=== PATIENT | male | born 1965 | race Caucasian/White ===

== ENCOUNTER 2016-12-24 11:03 | Observation (INO) | payer OTHER ==
[2016-12-24] MEDS ORDERED: MIDAZOLAM 2 MG/2 ML VIAL IVP ONE (11:11)
[2016-12-24] MEDS ORDERED: NS 1,000 ML IV ONE (11:11)
--- NOTE | 2016-12-24 11:32 | CPEKG ---
Heart Rate: 77 RR Interval: 779 P-R Interval: 132 QRSD Interval: 98 QT Interval: 400 QTC Interval: 453 P [place]: 34 QRS [place]: 74 T Wave [place]: -10 EKG Severity - ABNORMAL ECG - EKG Impression: SINUS RHYTHM EKG Impression: INFERIOR INFARCT, AGE INDETERMINATE Electronically Signed By: Robert Jansen 24-Dec-2016 16:51:13
[2016-12-24 11:40] LABS: % IMMATURE GRANULYOCYTES 0.2 % (0.0-1.1); ABSOLUTE IMMATURE GRANULOCYTES 0.01 10^3/uL (0.00-0.10); ADD DIFF? NO; ADD MORPH? NO; ADD SCAN? NO; ATYPICAL LYMPHOCYTE FLAG 0 (0-99); FRAGMENT RBC FLAG 0 (0-99); HEMATOCRIT 47.9 % (40.0-51.0); LEFT SHIFT FLG 0 (0-99); LIPEMIA HEMOLYSIS FLAG 90 (0-99); MEAN CELL HEMOGLOBIN 30.6 pg (27.9-34.1); MEAN CELL HEMOGLOBIN CONCENTR. 35.5 g/dL (32.4-36.7); MEAN CELL VOLUME 86.2 fL (81.5-99.8); MEAN PLATELET VOLUME 9.3 fL (8.7-11.7); PLATELET CLUMPS FLAG 0 (0-99); PLATELET COUNT 185 10^3/uL (150-400); RED BLOOD CELL COUNT 5.56 10^6/uL (4.40-6.38)
[2016-12-24 11:53] LABS: INR 1.03 (0.83-1.16); PROTIME(PATIENT) 13.4 SEC (12.0-15.0)
[2016-12-24 11:54] LABS: APTT 28.7 SEC (23.0-38.0)
[2016-12-24 11:57] LABS: ANION GAP 13 mEq/L (8-16); CALCIUM 9.3 mg/dL (8.5-10.4); CARBON DIOXIDE 22 mEq/l (22-31); CHLORIDE 105 mEq/L (97-110); CREATININE 1.5 mg/dL (0.7-1.3); GLOMERULAR FILTRATION RATE 50; GLUCOSE 89 mg/dL (70-100); SODIUM 140 mEq/L (134-144)
--- NOTE | 2016-12-24 11:58 | PDANEPAE ---
ANE History of Present Illness h/o WPW ANE Past Medical History - Cardiovascular History Hx Hypertension: No Hx Arrhythmias: Yes Hx Chest Pain: No Hx Coronary Artery / Peripheral Vascular Disease: No Hx CHF / Valvular Disease: No Hx Palpitations: No Cardiovascular History Comment: h/o WPW s/p surgical ablation, now with recurrent SVT - Pulmonary History Hx COPD: No Hx Asthma/Reactive Airway Disease: No Hx Recent Upper Respiratory Infection: No Hx Oxygen in Use at Home: No Hx Sleep Apnea: No - Endocrine History Hx Diabetes: No - Neurological & Psychiatric Hx Hx Neurological and Psychiatric Disorders: Yes Neurological / Psychiatric History Comment: bipolar d/o ANE Review of Systems Review of systems is: negative - Exercise capacity Exercise capacity: >=4 METS ANE Patient History - Allergies Allergies/Adverse Reactions: butalbital [From Fiorinal] Allergy (Unknown, Verified 06/13/12 09:24) Other-Enter Comments caffeine [From Fiorinal] Allergy (Verified 07/13/10 14:20) Other-Enter Comments oxycodone HCl [From Percocet] Allergy (Verified 07/13/10 14:20) Other-Enter Comments rizatriptan benzoate [From Maxalt] Allergy (Verified 07/13/10 14:20) Other-Enter Comments tramadol [Tramadol] Allergy (Verified 07/13/10 14:20) Other-Enter Comments - Home Medications Home medications: home medication list seen and reviewed Home Medications: Nebivolol HCl [Bystolic] 2.5 mg PO DAILY 03/03/16 [Last Taken 12/21/16] clonazePAM [Klonopin (*)] 0.5 mg PO DAILY PRN 12/24/16 [Last Taken Unknown] lamoTRIgine [LamICTAL 100 MG (*)] 200 mg PO HS 12/24/16 [Last Taken 12/23/16] - Smoking Hx Smoking Status: Never smoked ANE Labs/Vital Signs - Labs Result Diagrams: 12/24/16 11:30 12/24/16 11:30 - Vital Signs Height: 185 cm Weight: 86.2 kg ANE Physical Exam - Airway Neck exam: FROM Mallampati Score: Class 1 Mouth exam: normal dental/mouth exam - Pulmonary Pulmonary: no respiratory distress - Cardiovascular Cardiovascular: regular rate and rhythym - ASA Status ASA Status: II ANE Anesthesia Plan Anesthesia Plan: general endotracheal anesthesia
[2016-12-24] MEDS ORDERED: fentaNYL 100 MCG/2 ML INJ ONE (12:03)
[2016-12-24] MEDS ORDERED: DEXAMETHASONE 4 MG/ML VIAL ONE (12:05)
[2016-12-24] MEDS ORDERED: ONDANSETRON 4 MG/2 ML VIAL ONE (12:05)
[2016-12-24] MEDS ORDERED: SUGAMMADEX SODIUM 200 MG/2 ML VIAL IVP ONE (12:05)
[2016-12-24] MEDS ORDERED: MIDAZOLAM 2 MG/2 ML VIAL ONE (12:06)
[2016-12-24] MEDS ORDERED: ISOPROTERENOL HCL/D5W 0.2 MG/50 ML BAG IV ONE (12:06)
[2016-12-24] MEDS ORDERED: BUPIVACAINE 0.5% 30 ML SDV ONE (12:06)
[2016-12-24] MEDS ORDERED: HEPARIN 10,000 UNIT/10 ML MDV ONE ×2 (12:06→14:09)
[2016-12-24] MEDS ORDERED: LIDOCAINE 1% 300 MG/30 ML SDV ONE (12:06)
[2016-12-24] MEDS ORDERED: PROPOFOL 200 MG/20 ML VIAL ONE (12:50)
[2016-12-24] MEDS ORDERED: ROCURONIUM 50 MG/5 ML VIAL ONE (15:32)
[2016-12-24] MEDS ORDERED: ATROPINE SULFATE 1 MG/10 ML SYR ONE (16:45)
--- NOTE | 2016-12-24 17:05 | POSTANESTH ---
Post Anesthetic Evaluation Cardiovascular Status: Normal, Stable Respiratory Status: Normal, Stable Level of Consciousness/Mental Status: Can Participate in Eval Pain Control: Adequate, Prn Tx Ordered Nausea/Vomiting Control: Adequate, Prn Tx Ordered Complications Possibly Related to Anesthesia: None Noted
[2016-12-24] MEDS ORDERED: ACETAMINOPHEN 325 MG TAB PO PRN (17:14)
[2016-12-24] MEDS ORDERED: ONDANSETRON 4 MG/2 ML VIAL IVP PRN (17:14)
[2016-12-24] MEDS ORDERED: clonazePAM 0.5 MG TAB PO PRN (17:16)
--- NOTE | 2016-12-24 17:17 | EPPROC ---
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: INDICATION: Surgical ablation for R posteroseptal accessory pathway in 1980s Catheter ablation for CT isthmus dependent AFL and macro R AT near IVC at our institution 9 y ago Symptom free for 9 y, now presenting with AT with 1:1 conduction to ventricles 250-260 bpm PROCEDURES PERFORMED: 88918-03 EP evaluation with RA/RV/LA pace/record, with arrhythmia induction 53344-10 EP evaluation with RA/RV pace record, insert/reposition catheter, with arrhythmia induction 01698 SVT ablation Second arrhythmia 80108 3D mapping Fluoroscopy Catheters & Anesthesia: The patient arrived in the Electrophysiology Laboratory in the fasting state. The right clavicular region, right groin, and left groin area were prepped and draped in the usual sterile manner. Anesthesiologist administered general anesthesia. Appropriate non-invasive blood pressure, pulse oximetry and end- tidal CO2 monitoring was established. All catheters were placed percutaneously using the modified Seldinger technique , and advanced into position under fluoroscopic guidance. One #7 Tongan deflectable octapolar electrode catheter was advanced to the His-bundle position via the left femoral vein. One #7 Tongan deflectable catheter with 10 pairs of electrodes was placed via the left femoral vein into the coronary sinus. One # 7 Tongan Halo catheter was inserted through the right femoral vein and was placed at the tricuspid annulus. Heparin was administered to keep ACT > 250 seconds. Programmed stimulation was performed from the right atrium, coronary sinus ( left atrium) and right ventricle. Parahisian pacing demonstrated VA block. On arrival to the Electrophysiology Laboratory the patient was in sinus rhythm. Differential CS and Halo pacing confirmed bidirectional block across the CT isthmus. Septal to lateral conduction time 180 ms. SCL 800 ms, AH 60 ms, HV 55 ms Antegrade AV quita function WBB 340 ms, no slow AV quita pathway Retrograde VA block 2 AT were induced while burst pacing the RA during isoproterenol infusion 2 mcg/ min. AT#1 CL 230-250 ms. Entrainment mapping confirmed that this was not atrial flutter. AT#2 CL 240-270 ms. There was 1:1 conduction over the AV node with intermittent RBBB/LAFB and RBBB/LPFB aberrancy. Activation mapping showed lateral TA was early and this was not consistent with atrial flutter. Due to 1:1 conduction over AV node and hypotension, we were not able to map during AT. At lower doses of isoproterenol we could not induce AT. At higher doses of isoproterenol we could not induce AT. An Agilis sheath, Pentaray catheter and STSF 3.5 mm Carto catheter were used. A high resolution (4000+ point map) of the RA, proximal CS , proximal SVC was performed. Again this confirmed conduction block across CT isthmus. Double potentials and fragmented potentials were seen along the mid posterior and posterolateral RA. Ablation was performed along all areas showing low voltage fragmented and double potentials (avoiding normal voltage areas near skyla terminalis showing double potentials). Pacing was performed at all ablation sites to rule out phrenic nerve stimulation. Ablation was mainly directed at posterior and posteroseptal RV targeting fragmented/double potentials and also channels of normal voltage in between areas of scar/low voltage. Post ablation, programmed stimulation was performed with and without isoproterenol. No arrhythmias were inducible. The catheters were removed. Long sheath was changed to short 10Fr sheath. Protamine was administered. The patient was transferred to the cardiovascular holding area in stable condition. Vascular access sheaths were removed in the holding area. There were no apparent complications. CONCLUSIONS: 1. 2 separate macroreentrant right atrial tachycardias. Ablation performed in the mid posterior and posterolateral right atrium. No arrhythmias inducible post ablation. 2. Prior ablation across the cavotricuspid isthmus. Persistent bidirectional conduction block across CT isthmus. 3. Prior surgical ablation of right posteroseptal accessory pathway. No evidence of antegrade or retrograde conduction over accessory pathway. 4. No atrial arrhythmias inducible post ablation. 5. No apparent complications. Patient Problems: Problems Problem Status Onset Atrial tachycardia Acute
[2016-12-24] MEDS ORDERED: KETOROLAC 30 MG/1 ML SDV ONE (17:38)
[2016-12-24] MEDS ORDERED: KETOROLAC 15 MG/1 ML SDV IVP ONE (17:45)
--- NOTE | 2016-12-24 18:09 | CPEKG ---
Heart Rate: 97 RR Interval: 619 P-R Interval: 140 QRSD Interval: 96 QT Interval: 368 QTC Interval: 468 P [place]: 41 QRS [place]: 65 T Wave [place]: -10 EKG Severity - ABNORMAL ECG - EKG Impression: SINUS RHYTHM EKG Impression: LEFT ATRIAL ABNORMALITY Electronically Signed By: Raheel Abbott 24-Dec-2016 21:05:55
[2016-12-24] MEDS ORDERED: IOPAMIDOL (ISOVUE 370) 100 ML BTL IV ONE (18:48)
[2016-12-24] MEDS ORDERED: LORazepam 2 MG/ML INJ ONE ×2 (18:59→19:10)
[2016-12-24] MEDS ORDERED: LORazepam 2 MG/ML INJ IVP ONE ×2 (19:00→19:30)
[2016-12-24 19:02] LABS: ANION GAP 11 mEq/L (8-16); CALCIUM 8.1 mg/dL (8.5-10.4); CARBON DIOXIDE 19 mEq/l (22-31); CHLORIDE 107 mEq/L (97-110); CREATININE 1.6 mg/dL (0.7-1.3); GLOMERULAR FILTRATION RATE 46; GLUCOSE 118 mg/dL (70-100); MAGNESIUM 1.7 mg/dL (1.6-2.3); POTASSIUM 4.7 mEq/L (3.5-5.2); SODIUM 137 mEq/L (134-144)
[2016-12-24] MEDS ORDERED: levETIRAcetam 500 MG in NS 100 ML IV ONE (19:11)
[2016-12-24] MEDS ORDERED: lamoTRIgine 100 MG TAB PO SCH (21:00)
--- NOTE | 2016-12-24 22:02 | PDGENHP ---
History and Physical History and Physical: CRITICAL CARE NOTE HISTORY: I responded to a statin team call and Stroke alert this evening for this patient who has had cardiac ablation treatment bike transcatheter approach earlier today. As I arrived the patient was awake lying in bed with staff members and his at the bedside. The patient had just been transferred over from the post procedure recovery area. The nurses were transferring him from [facility] to bed. The patient suddenly had odd look on his face according to the nurse and would not speak to her although it seemed that he might have been following other commands. Following this the patient was awake and this is when I arrived. Vital signs are normal at this time the patient is breathing and denying any chest discomfort or headache or shortness of breath. He has sinus rhythm on cytotechnologist supervisor. As we were with the patient he had another episode where suddenly he would not talk, his eyes fixed straight ahead, eyelids twitching and perioral muscles contracted in odd posture. This lasted for perhaps 45 seconds and resolved. He did not follow commands for me during this time. There was no other convulsion. Following this episode as well as following the 1st episode the patient was not confused, somnolent, or sedated. However he told me that he felt somewhat foggy. Again he denies any headache, chest discomfort, shortness of breath, nausea, other pains. He stated he felt fine at his in bilateral groin access sites. Cardiac and pulmonary exam were normal, pulses strong and regular, and vital signs again remained normal. An I-STAT test was done showing normal electrolytes renal function and sugar. I could find no focal neurologic abnormalities. There was concern that these episodes were seizure and that this could potentially be caused by stroke. Therefore we begin to move the patient down to the Radiology Department for stat imaging and contacted the on-call neurologist at [facility] by telemedicine. On the way to the imaging department the patient had another seizure-like episode and then during the time of our CT scanning he had several more episodes. These were each brief but as the episodes occurred each 1 seem to have more diffuse muscle activity that was tonic primarily in his hands and then arms. Again each of these was not followed by any confusion, somnolence or change in mentation. As we completed the imaging studies we re-examined him and had somewhat inconsistent examination of strength in the lower limbs. He was then examined by the telemedicine neurologist via robot. The patient did have further seizure -like activity during this examination although notably the patient was having some tonic activity of the arms and upon instruction of the neurologist he was able to stop this and move his arms normally. It should be mentions that between the time of his 1st episode and the time of this examination the patient had been given a total 4 mg of IV Ativan and 1 g of IV Keppra. CT of the head noncontrast did not show any acute abnormalities. CT angiograms did not show any significant vascular abnormalities. He was admitted earlier today and underwent an ablation therapy for ongoing ventricular ectopy by Dr. Robert Jansen. The patient has a history of heart disease with Achss-Wkeksncvm-Fdlam status post surgery and previous ablation therapy for a fib. Notably the patient has no history of seizure disorder stroke or other neurologic disorder. He has bipolar disorder and takes Lamictal for that and last took his nightly dose last night. Dr. Jansen was with the patient during his neurologic exam and the CT scan room ROS: A comprehensive 10 system review revealed no other significant findings PAST MEDICAL HISTORY: Gycby-Qebhohjvx-Krbin syndrome with surgery for that at age 21 Subsequent atrial fibrillation with an ablation therapy for that Bicuspid aortic valve Ongoing ventricular ectopy FAMILY MEDICAL HISTORY: No neurologic illness or vascular illness SOCIAL HISTORY: lives with his No street drugs or alcohol Exercises LABORATORY DATA: As above I stat was normal during this evaluation RADIOLOGY STUDIES: CT scans as listed above with results their ASSESSMENT: 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 However will watch him very closely in ICU and have an EEG done in the morning. Formal bedside neurology consult tomorrow. Will check laboratory dated to ensure electrolytes stating good range Continue his Lamictal I have reviewed the patient's case in detail with Dr. Robert Jansen and with the consulting telemedicine radiologist Greater than 60 minutes critical care time at the bedside
[2016-12-25 06:22] LABS: % IMMATURE GRANULYOCYTES 0.3 % (0.0-1.1); ABSOLUTE IMMATURE GRANULOCYTES 0.02 10^3/uL (0.00-0.10); ADD DIFF? NO; ADD MORPH? NO; ADD SCAN? NO; ATYPICAL LYMPHOCYTE FLAG 0 (0-99); FRAGMENT RBC FLAG 0 (0-99); HEMOGLOBIN 13.5 g/dL (13.7-17.5); LEFT SHIFT FLG 0 (0-99); LIPEMIA HEMOLYSIS FLAG 90 (0-99); MEAN CELL HEMOGLOBIN 31.2 pg (27.9-34.1); MEAN CELL HEMOGLOBIN CONCENTR. 35.5 g/dL (32.4-36.7); MEAN CELL VOLUME 87.8 fL (81.5-99.8); MEAN PLATELET VOLUME 9.3 fL (8.7-11.7); PLATELET CLUMPS FLAG 10 (0-99); PLATELET COUNT 161 10^3/uL (150-400); RED BLOOD CELL COUNT 4.33 10^6/uL (4.40-6.38)
[2016-12-25 06:32] LABS: ANION GAP 9 mEq/L (8-16); CALCIUM 8.1 mg/dL (8.5-10.4); CARBON DIOXIDE 22 mEq/l (22-31); CHLORIDE 108 mEq/L (97-110); CREATININE 1.3 mg/dL (0.7-1.3); GLOMERULAR FILTRATION RATE 59; GLUCOSE 98 mg/dL (70-100); MAGNESIUM 1.8 mg/dL (1.6-2.3); POTASSIUM 3.8 mEq/L (3.5-5.2); SODIUM 139 mEq/L (134-144)
[2016-12-25 06:38] LABS: INR 1.1 (0.83-1.16); PROTIME(PATIENT) 14.1 SEC (12.0-15.0)
[2016-12-25 06:44] LABS: CREATINE KINASE-MB FRACTION 2.36 ng/mL (0-3.19); TROPONIN I 0.557 ng/mL (0-0.034)
--- NOTE | 2016-12-25 08:44 | CPEKG ---
Heart Rate: 82 RR Interval: 732 P-R Interval: 136 QRSD Interval: 102 QT Interval: 396 QTC Interval: 463 P [place]: 42 QRS [place]: 45 T Wave [place]: -12 EKG Severity - ABNORMAL ECG - EKG Impression: SINUS RHYTHM EKG Impression: INFERIOR INFARCT, AGE INDETERMINATE Electronically Signed By: Robert Jansen 25-Dec-2016 11:49:23
[2016-12-25] MEDS ORDERED: ASPIRIN 81 MG CHEWABLE TAB PO SCH (09:00)
[2016-12-25] MEDS ORDERED: NEBIVOLOL HCL 5 MG TAB PO SCH (09:00)
[2016-12-25] MEDS ORDERED: NON-FORMULARY NEW DRUG (Nebivolol Hcl [Bystolic] 2.5 MG) PO SCH (09:00)
--- NOTE | 2016-12-25 09:06 | ECHO ---
[id number] + + [address] : : [place] [address] : : [phone] + + Adult Echocardiographic Report + ------+ :Name: IRVIN DURAN RStudy Date: 12/25/2016 07:47 AM : : Hospital Admission Number: [id number] n: 256: :: 1965 Gender: Male Height: 72 in : :Age: 50 yrs Race: WH Weight: 190 lb : :Reason For Study: Eval LV Fx : : BSA: 2.1 meters 2 : :History: Post Ablation : + ------+ MMode/2D Measurements \T\ Calculations IVSd: 0.79 cm LVIDd: 5.1 cm FS: 39.0 % Ao root diam: 3.6 cm LVPWd: 1.1 cm LVIDs: 3.1 cm EDV(Teich): 125.5 ml ACS: 1.8 cm ESV(Teich): 38.9 ml EF(Teich): 69.0 % Normal Measurement Values: + + :LVIDd (3.5-5.7cm) IVSd (0.6-1.1cm) LVPWd (0.6-1.1cm) Aortic Root (2.0-3.7cm)Left Atrium (1.5-4.0cm): :LV Vol(d) (76-115ml) LV Vol(s) (29-48ml) Ejec Fraction (50-65%)PV Simeon (0.6- 1.2m/s) TV Simeon (0.4-1.0m/s) : :MV E Simeon (0.8-1.0m/s)MV A Simeon (0.3-1.0m/s)LVOT Simeon (0.7-1.2m/s) Asc Ao Simeon ( 0.9-1.8m/s) : + + Doppler Measurements \T\ Calculations MV E max simeon: Ao V2 max: AI max simeon: LV V1 max: 94.8 cm/sec 138.5 cm/sec 248.4 cm/sec 87.4 cm/sec MV A max simeon: Ao max PG: AI max P.7 mmHg LV V1 max P.5 cm/sec 7.7 mmHg AI dec slope: 3.1 mmHg MV E/A: 1.3 169.0 cm/sec2 AI P1/2t: 430.4 msec PA V2 max: TR max simeon: 95.0 cm/sec 222.6 cm/sec PA max PG: TR max P.6 mmHg 19.8 mmHg RAP systole: 5.0 mmHg RVSP(TR): 24.8 mmHg Left Ventricle The left ventricle is normal in size. There is normal left ventricular wall thickness. The left ventricular ejection fraction is normal. Ejection Fraction = 70%. The left ventricular wall motion is normal. Right Ventricle The right ventricle is normal in size and function. Atria The left atrial size is normal. Right atrial size is normal. Mitral Valve The mitral valve is normal in structure and function. There is no evidence of mitral valve prolapse. There is no mitral valve stenosis. There is no mitral regurgitation noted. Tricuspid Valve Normal tricuspid valve. No tricuspid regurgitation. Aortic Valve There is a known bicuspid aortic valve. There is no aortic stenosis. Mild aortic regurgitation. Pulmonic Valve The pulmonic valve is normal in structure and function. There is no pulmonic valvular regurgitation. Great Vessels The aortic root is normal size. Pericardium/Pleural There is no pericardial effusion. Conclusion A complete two-dimensional transthoracic echocardiogram was performed (2D, M-mode, Doppler and color flow Doppler). The left ventricular ejection fraction is normal. Ejection Fraction = 70%. The left ventricular wall motion is normal. The right ventricle is normal in size and function. The mitral valve is normal in structure and function. There is a known bicuspid aortic valve. Mild aortic regurgitation. There is no pericardial effusion. Final Reading Physician: Ananya Watkins signed on 12/25/2016 09:04 AM Ordering Physician: Robert Jansen Performed By: Duarte Robertson, CARRIECS
[2016-12-25 10:22] VITALS: TEMP 98.7
--- NOTE | 2016-12-25 11:59 | PDCARPN ---
Cardiology Progress Note Assessment/Plan: This is a late progress note for encounter 12/24/2016. Total time spent with the patient was 1 hour and 15 minutes. Patient had an ablation procedure for right atrial tachycardia yesterday . He was anticoagulated with an ACT level more than 250 seconds during the procedure. I had talked with him in the CBC prior to leaving the hospital and explained procedure at length to the patient. Approximately 6:45 p.m., I was called by the telemetry nurse, CVC nurse and ICU charge nurse regarding patient' s status. Please refer to Dr. You note for further details regarding the neurologic episodes that the patient had and which he witnessed. I met the patient in the CT scan room. He was appropriate and following commands. He did have 1 episode of tonic activity of the left upper extremity without any other lateralizing neurologic signs and without any prolonged confusion post event. Was able to talk to me during the event. I reviewed this CT scan and the CT angiogram of head and neck with Dr. Nadeem Marcial, these were normal. I was present while the patient had his remote neurologic examination with [place] neurologist. I subsequently talked to the neurologist by phone at length. There was no evidence of stroke. His presentation was atypical for seizures. We will request a consultation with Neurology for Saturday. We will also order a prolactin level to be drawn within 30 minutes of the last event. I met with the patient again on 12/25/2016 and discussed the results of the ablation. I also discussed his management options with Dr. Kleber Escobar who has placed driving restrictions on the patient which she has discussed with the patient. The patient is to follow up with Dr. Kleber Escobar as an outpatient and MRI and EEG will be done at that time. Objective: Vital Signs (8 Hrs) Temp Pulse Resp BP Pulse Ox 12/25/16 10:00 37.1 C 85 19 111/61 96 12/25/16 08:00 84 18 106/62 97 12/25/16 06:00 80 16 96/58 L 94 12/25/16 04:00 84 16 101/57 L 94 Intake/Output (24 Hrs) 12/23/16 12/24/16 12/25/16 11:59 11:59 11:59 Intake Total 4500 Output Total 1320 Balance 3180 Intake: Oral (ml) 1000 IV Intake (ml) 3500 Output: Urine (ml) 1320 Urinal 1320 Other: Weight 86.2 kg Number of Voids Urinal 2 Result Diagrams: 12/25/16 06:00 12/25/16 06:00 Cardiac Labs: Cardiac Lab Results (72 Hrs) 12/25/16 06:00 CK-MB (CK-2) Fraction 2.36 Troponin I 0.557 H ICD10 Worksheet Patient Problems: Problems Problem Status Onset Atrial tachycardia Acute
[2016-12-25 12:12] VITALS: BP 121/65; PULSE 82; RESP 13; O2SAT 98
--- NOTE | 2016-12-25 19:28 | GCON ---
[f rep st] CONSULTATION NEUROLOGY CONSULTATION REFERRING PHYSICIAN: Robert Jansen MD CHIEF COMPLAINT: Spells. 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 He does not do any actual cabinet making currently. He has a longstanding cardiac history including bicuspid aortic valve and subsequent dysrhythmia with a previous ablation and then most recently an ablation yesterday for Zffdg-Ucjmidzzr-Xrbdb syndrome. Last night, a stroke alert was called after the patient had a transcatheter ablation earlier yesterday. Reading the critical care/stroke alert notes, I understand the patient was awake and alert when he was immediately assessed in the postprocedure recovery area. He then had brief episodes around 45 seconds long of an odd look on his face and would not speak, although he could follow commands and seemed aware. He had a stat evaluation including neurologic exam along with head CT without contrast and CTA of the head and neck. [facility] also was contacted. Essentially, he had some recurrent episodes of these brief indeterminate spells of looking ahead and not verbally responding. He did appear to have some muscle movement in his face that was difficult to localize. In summary, the attending physician felt these were nonepileptic events. He was also evaluated by Telemedicine via the camera, but did not apparently have any further activity at that time. He had a head CT without contrast, which was normal and CTA of the head and neck. Angiography of the brain was normal. Angiography of the neck showed no evidence of significant stenosis or dissection in any of his major arteries. He was stable overnight and states that a few minutes before I came into the room when he was being evaluated by Nursing, he had another spell again. He describes it as being aware but "time slowing down" and it is the sensation of time slowing down which makes him feel like he cannot immediately respond. There was no tongue biting, incontinence, or cotlen convulsive activity. In obtaining more history from the patient, he says he has a lifelong sensitivity to all types of medicine such that he has to typically take 25% of the dosages. He had general anesthesia yesterday. When asked if he had adverse reactions to general anesthesia in the past, he did endorse that the last time he had general anesthesia, he became paralyzed in the legs without cause and resolved spontaneously, thought to be due to some sort of adverse effects from the medication possibly. For past medical history, family history, social history, and home medications, please see Dr. You's H and P. REVIEW OF SYSTEMS: A 10-point review of system was done only pertinent to the HPI. Billing information: 70 total minutes on the floor reviewing electronic health record, images and history along with direct counseling of the patient and coordinating care. NEUROLOGIC EXAMINATION: VITAL SIGNS: Normal. Blood pressure 121/65, heart rate was 82, respirations 13, saturating at 98% on room air, afebrile. GENERAL : No acute distress. Very pleasant man. Higher mental function: He names 5/5 , repeats 5/5, follows commands 5/5. No aphasia. He is lucid. Cranial Nerve Exam: Normal 2 through 7, 11, and 12. Motor exam: Normal strength, tone, and reflexes throughout. Sensory: Normal to light touch in all 4 extremities. Coordination: Normal in upper and lower extremities. In summary, normal neurologic exam. IMPRESSION: 1. Indeterminate spells The overall impression of the care team is that the patient had nonepileptic- type events. I am reassured by the history, his normal exam and the neurovascular imaging that have been done at this point. He certainly may have had stress-related symptoms versus adverse effect from general anesthesia, and I think actual epileptic seizure are much less likely. He does have a history of a TBI per the patient around 6 years ago when he slipped and fell in a hallway and hit his head on the floor. Based on all of the above, we will place him on 90 days of driving restrictions and seizure precautions. I have asked my office to contact him to set up a brain MRI without contrast and 4- hour video EEG. Once these studies are complete, we will follow up afterwards to review the results. If they are normal, we will likely have the patient finish his restrictions and observe him over time for any new symptoms or changes. If they are abnormal, we will give him recommendations accordingly. Thank you for this consultation. /[id number]/MODL MTDD
--- NOTE | 2016-12-25 19:28 | GDS ---
[f rep st] DISCHARGE SUMMARY PRIMARY CARDIOLOGISTS: Dr. Jose Manuel Flowers, and Dr. Robert Jansen. DISCHARGE DIAGNOSES: 1. History of atrial tachycardia, status post right atrial tachycardia ablation on 12/24/2016. 2. Known bicuspid aortic valve. 3. History of Mxseh-Cvorcrzrb-Uhhdx and surgical intervention approximately 20 years ago. 4. History of atrial flutter, status post ablation 9 years ago. 5. Bipolar disorder. 6. Pseudoseizure HOSPITAL COURSE: For detailed H and P, please see prior dictation. Briefly, Freddie is a 50-year-old male with a history of WPW and surgical ablation in 1987. He did well until 2007 when he presented with atrial flutter, and underwent an ablation by Dr. Robert Jansen. Most recently, he was diagnosed with right atrial tachycardia, which was ablated by Dr. Robert Jansen on 12/24/2016. The procedure was uncomplicated. The patient was being transferred from the [facility] when he experienced what looked like a neurological event. A stroke alert was called, and Dr. Jesus You oversaw the alert. He described the patient's episode as an inability to talk, with his eyes fixed straight ahead and eyelids twitching. This lasted for approximately 45 seconds. He was able to converse after his event. He had another event where he showed tonic activity of the left upper extremity, without other lateralizing neurological signs. He was taken for a stat CT scan of the head as well as CT angiogram of the head and neck. The on-call neurologist at [facility] did evaluate the patient. There was no sign of CVA, and this was felt to be an atypical presentation for seizure. The following morning, he had a consultation with Dr. Kleber Escobar. Ultimately it was deemed that the patient could be discharged home with plan for followup with Dr. Escobar with an MRI and EEG. He was given driving restrictions. Also, prolactin level was drawn and normal. PHYSICAL EXAMINATION: GENERAL: The patient appears in no acute distress. VITAL SIGNS: Blood pressure 121/65, heart rate 82, oxygen saturation 98% on room air, afebrile. LUNGS: Clear to auscultation. No wheezes, rhonchi, or crackles auscultated. CARDIAC: Regular rate and rhythm, without any significant murmurs, rubs, or gallops appreciated. EXTREMITIES: Bilateral groins, where access was obtained for the EP study, are clean and intact, without any evidence of infection or hematoma. DISCHARGE MEDICATIONS: His Bystolic has been increased to 5 mg daily. Aspirin 81 mg daily. Lamictal 200 mg at bedtime. Klonopin 0.5 mg p.r.n. DISCHARGE INSTRUCTIONS: The patient is currently ready for discharge home. He will follow up with Dr. Kleber Escobar, from neurology. He has been given groin precautions, and will follow driving precautions, per Neurology. He will follow up in our office as scheduled. /[id number]/MODL MTDD
== END 2016-12-25 12:45 | disposition home or self-care (01) ==
LOC: FSGY 11:03 → F2W 17:03 → F2N 19:17
PROVIDERS: ADMIT Internal Medicine Cardiovascular Disease; ATTEND Internal Medicine Cardiovascular Disease
PROC: 02K83ZZ Map Conduction Mechanism, Percutaneous Approach (ICD-10-PCS; principal; 2016-12-24)
PROC: 5A1213Z Performance of Cardiac Pacing, Intermittent (ICD-10-PCS; principal; 2016-12-24)
PROC: 02563ZZ Destruction of Right Atrium, Percutaneous Approach (ICD-10-PCS; principal; 2016-12-24)
DX: I47.1 Supraventricular tachycardia (principal); F44.5 Conversion disorder with seizures or convulsions; Q23.1 Congenital insufficiency of aortic valve; Z86.79 Personal history of other diseases of the circulatory system; F31.9 Bipolar disorder, unspecified
CPT/HCPCS: 70450; 70496; 70498; 93005; 93306; 93613; 93621; 93653; 93655; C1731; C1732; C1766; G0378; 82947-QW; J0461; J1100; J1644; J1885; J1953; J2060; J2250; J2405; J2704; J3010; Q9967

== ENCOUNTER 2017-01-19 17:32 | Emergency (ER) | payer OTHER ==
--- NOTE | 2017-01-19 17:46 | EDPHY ---
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 - Social History Smoking Status: Never smoked Constitutional: Initial Vital Signs Temperature (C) 36.6 C 01/19/17 17:33 Heart Rate 102 H 01/19/17 17:33 Respiratory Rate 16 01/19/17 17:33 Blood Pressure 124/77 H 01/19/17 17:33 O2 Sat (%) 98 01/19/17 17:33 O2 Delivery Mode Room Air O2 (L/minute) 2 Allergies/Adverse Reactions: butalbital [From Fiorinal] Allergy (Unknown, Verified 06/13/12 09:24) Other-Enter Comments caffeine [From Fiorinal] Allergy (Verified 07/13/10 14:20) Other-Enter Comments oxycodone HCl [From Percocet] Allergy (Verified 07/13/10 14:20) Other-Enter Comments rizatriptan benzoate [From Maxalt] Allergy (Verified 07/13/10 14:20) Other-Enter Comments tramadol [Tramadol] Allergy (Verified 07/13/10 14:20) Other-Enter Comments Home Medications: Medication Instructions Recorded clonazePAM [Klonopin (*)] 0.5 mg PO DAILY PRN 12/24/16 lamoTRIgine [LamICTAL 100 MG (*)] 200 mg PO HS 12/24/16 Aspirin [Aspirin 81mg (*)] 81 mg PO DAILY #0 tab.chew 12/25/16 Nebivolol HCl [Bystolic 5 mg (*)] 5 mg PO DAILY #90 tab 12/25/16 Medical Decision Making - Diagnostics Imaging: Discussed imaging studies w/ on call pharmacy technician Radiologist, I viewed and interpreted images myself ED Course/Re-evaluation: CHIEF COMPLAINT: Irregular heart-rate HISTORY OF PRESENT ILLNESS: The patient s a 51 y/o male complaining of an irregular heart rate since this morning. He has a history of a WPW open heart surgery repair at 20y/o. He as since had two ablations, with the most recent one on December 26, 2016. Today he woke from sleep and felt an irregular heart beat no other symptoms. He was initially shaky and had heartburn after waking up but this has since subsided. He denies shortness of breath, chest pressure, chest tightness, nausea, vomiting, taking stimulants, smoking, or increased alcohol intake. REVIEW OF SYSTEMS: A 10 point review of systems was performed and is negative with the exception of the elements mentioned in the history of present illness. PHYSICAL EXAM: HR, BP, O2 Sat, RR. Temp noted General Appearance: Alert, well hydrated, appropriate, and non-toxic appearing. Head: Atraumatic without scalp tenderness or obvious injury Eyes: Pupils equal, round, reactive to light and accommodation, EOMI, no trauma , no injection. Ears: Clear bilaterally, no perforation, normal landmarks Nose: Atraumatic, no rhinorrhea, clear. Throat: Mucus membranes moist. Neck: Supple, nontender, no lymphadenopathy. Respiratory: No retractions, no distress, no wheezes, and no accessory muscle use. Lungs are clear to auscultation bilaterally. Cardiovascular: 1-2 systolic ejection murmur. Regular rate and rhythm, rubs, or gallops. Bilateral carotid, radial, dorsalis pedis, and posterior tibial pulses intact. Good capillary refill all extremities. Gastrointestinal: Abdomen is soft, nontender, non-distended, no masses, no rebound, no guarding, no peritoneal signs. Musculoskeletal: Normal active ROM of all extremities, atraumatic. Neurological: Alert, appropriate, and interactive. Non-focal neuro. Skin: No rashes, good turgor, no nodules on palpation. Past medical history: Bicuspid aortic valve, ablation x2 Past surgical history: Open ablation for WPW when 20 y/o Family history: Noncontributory Social history: Employed, does not abuse tobacco drugs or alcohol DIAGNOSTICS/PROCEDURES/CRITICAL CARE TIME: The 12 lead EKG was interpreted by myself. See hard copy and/or "tracemaster" electronic copy for interpretation. Sinus mechanism with no evidence of ischemia or dysrhythmia. Additionally there is no evidence of dysrhythmia on rhythm evaluation while in the emergency department DIFFERENTIAL DIAGNOSIS: The differential diagnosis for the patient's narrow complex tachycardia included but was not limited to various causes of sinus tachycardia such as dehydration and medicines, SVT, atrial flutter, atrial fibrillation, pulmonary causes. MEDICAL DECISION MAKING: Patient is fine getting labs but does not want an IV. Patient essentially has had 3 different ablation is in his life and is feeling some rhythm disturbance. He is also feeling his heart rate is slightly elevated. Consequently, we have performed laboratory studies an EKG but essentially the studies are unremarkable except for some chronic renal insufficiency. The patients murmur is old and due to a bicuspid aortic valve. I will page Dr. Jose Manuel Flowers or his coverage who is this patient's six sigma project manager regarding close follow-up and/or admission. The patient would prefer [facility]. Dr. Robert Jansen has performed the ablation. I talked to Dr. Shannon covering for [facility]. He knows this patient well. He believes that this patient is safe to go home. He is very familiar with this patient's rhythm disturbances and believes this patient might benefit from a link monitor since he is expected to continue to get rhythm disturbances throughout his life most likely. The patient should continue on his Bystolic. He the office will call him Saturday and set up a follow-up appointment he will return here if he gets worse. - Data Points Laboratory Results: Laboratory Results 01/19/17 18:00 01/19/17 18:00 01/19/17 01/19/17 01/19/17 18:00 18:00 18:00 WBC 5.45 10^3/uL 10^3/uL (3.80-9.50) RBC 4.95 10^6/uL 10^6/uL (4.40-6.38) Hgb 15.2 g/dL g/dL (13.7-17.5) Hct 43.1 % % (40.0-51.0) MCV 87.1 fL fL (81.5-99.8) MCH 30.7 pg pg (27.9-34.1) MCHC 35.3 g/dL g/dL (32.4-36.7) RDW 12.4 % % (11.5-15.2) Plt Count 179 10^3/uL 10^3/uL (150-400) MPV 9.2 fL fL (8.7-11.7) Neut % (Auto) 52.3 % % (39.3-74.2) Lymph % (Auto) 35.8 % % (15.0-45.0) [place] % (Auto) 9.2 % % (4.5-13.0) Eos % (Auto) 1.7 % % (0.6-7.6) Baso % (Auto) 0.6 % % (0.3-1.7) Nucleat RBC Rel Count 0.0 % % (0.0-0.2) Absolute Neuts (auto) 2.86 10^3/uL 10^3/uL (1.70-6.50) Absolute Lymphs (auto) 1.95 10^3/uL 10^3/uL (1.00-3.00) Absolute Monos (auto) 0.50 10^3/uL 10^3/uL (0.30-0.80) Absolute Eos (auto) 0.09 10^3/uL 10^3/uL (0.03-0.40) Absolute Basos (auto) 0.03 10^3/uL 10^3/uL (0.02-0.10) Absolute Nucleated RBC 0.00 10^3/uL 10^3/uL (0-0.01) Immature Gran % 0.4 % % (0.0-1.1) Immature Gran # 0.02 10^3/uL 10^3/uL (0.00-0.10) PT 12.7 SEC SEC (12.0-15.0) INR 0.96 (0.83-1.16) APTT 28.5 SEC SEC (23.0-38.0) Sodium 137 mEq/L mEq/L (134-144) Potassium 3.7 mEq/L mEq/L (3.5-5.2) Chloride 103 mEq/L mEq/L (97-110) Carbon Dioxide 25 mEq/l mEq/l (22-31) Anion Gap 9 mEq/L mEq/L (8-16) BUN 23 mg/dL mg/dL (7-23) Creatinine 1.4 mg/dL H mg/dL (0.7-1.3) Estimated GFR 54 Glucose 109 mg/dL H mg/dL (70-100) Calcium 9.3 mg/dL mg/dL (8.5-10.4) Magnesium 2.1 mg/dL mg/dL (1.6-2.3) Troponin I < 0.012 ng/mL ng/mL (0.000-0.034) NT-Pro-B Natriuret Pep 75 pg/mL pg/mL (0-125) TSH 1.840 uIU/mL uIU/mL (0.465-4.680) Departure - Departure Clinical Impression: Palpitations Instructions: Palpitations (ED) Additional Instructions: Return if worse. Dr. Robert Jansen will call you and follow-up this week. Referrals: Mayo King MD [Primary Care Provider] - As per Instructions Report Scribed for: Troy Huggins Report Scribed by: Farhana Machuca Date of Report: 01/19/17 Time of Report: 18:29
--- NOTE | 2017-01-19 17:53 | CPEKG ---
Heart Rate: 97 RR Interval: 619 P-R Interval: 152 QRSD Interval: 98 QT Interval: 360 QTC Interval: 458 P [place]: 27 QRS [place]: 72 T Wave Tre[place]: -6 EKG Severity - ABNORMAL ECG - EKG Impression: SINUS RHYTHM EKG Impression: PROBABLE LEFT ATRIAL ABNORMALITY EKG Impression: INFERIOR INFARCT, AGE INDETERMINATE Electronically Signed By: Troy Huggins 19-Jan-2017 22:06:26
[2017-01-19 18:24] LABS: % IMMATURE GRANULYOCYTES 0.4 % (0.0-1.1); ABSOLUTE IMMATURE GRANULOCYTES 0.02 10^3/uL (0.00-0.10); ADD DIFF? NO; ADD MORPH? NO; ADD SCAN? NO; ATYPICAL LYMPHOCYTE FLAG 10 (0-99); FRAGMENT RBC FLAG 0 (0-99); HEMATOCRIT 43.1 % (40.0-51.0); HEMOGLOBIN 15.2 g/dL (13.7-17.5); LEFT SHIFT FLG 0 (0-99); LIPEMIA HEMOLYSIS FLAG 90 (0-99); MEAN CELL HEMOGLOBIN 30.7 pg (27.9-34.1); MEAN CELL HEMOGLOBIN CONCENTR. 35.3 g/dL (32.4-36.7); MEAN CELL VOLUME 87.1 fL (81.5-99.8); MEAN PLATELET VOLUME 9.2 fL (8.7-11.7); PLATELET CLUMPS FLAG 0 (0-99); PLATELET COUNT 179 10^3/uL (150-400); RED BLOOD CELL COUNT 4.95 10^6/uL (4.40-6.38); RED CELL DISTRIBUTION WIDTH 12.4 % (11.5-15.2)
[2017-01-19 18:39] LABS: ANION GAP 9 mEq/L (8-16); CALCIUM 9.3 mg/dL (8.5-10.4); CARBON DIOXIDE 25 mEq/l (22-31); CHLORIDE 103 mEq/L (97-110); CREATININE 1.4 mg/dL (0.7-1.3); GLOMERULAR FILTRATION RATE 54; GLUCOSE 109 mg/dL (70-100); MAGNESIUM 2.1 mg/dL (1.6-2.3); POTASSIUM 3.7 mEq/L (3.5-5.2); SODIUM 137 mEq/L (134-144)
[2017-01-19 18:41] LABS: INR 0.96 (0.83-1.16); PROTIME(PATIENT) 12.7 SEC (12.0-15.0)
[2017-01-19 18:42] LABS: APTT 28.5 SEC (23.0-38.0)
[2017-01-19 18:51] LABS: TROPONIN I < 0.012 ng/mL (0.000-0.034)
[2017-01-19 19:41] VITALS: BP 128/78; PULSE 88; RESP 18; TEMP 98.1; O2SAT 94
== END 2017-01-19 19:41 | disposition home or self-care (01) ==
DX: R00.2 Palpitations (principal); R79.1 Abnormal coagulation profile; Z79.82 Long term (current) use of aspirin

== ENCOUNTER 2017-04-28 23:17 | Emergency (ER) | payer OTHER ==
--- NOTE | 2017-04-28 23:31 | EDPHY ---
H & P HPI/ROS: HPI CHIEF COMPLAINT: Palpitations HISTORY OF PRESENT ILLNESS: This patient is a very pleasant 51-year-old male, significant past medical history for WPW, atrial flutter and atrial tachycardia status post ablation he presents emergency room with palpitations. He states approximately 30 min ago he is lying on his couch and felt his heart beating irregular and 1st it was just a regular but then he states he got fast. He immediately drove to the emergency room. He states in the waiting room a cut went away. Now he does not feel it. He denies any chest pain or shortness of breath. Denies back pain. He denies any chest pain or shortness of breath or back pain or neck pain or arm pain or numbness or tingling when this happened. Main complaint was irregular heartbeat and at times fast. No lightheadedness or syncope. No nausea no vomiting. No diaphoresis. Past Medical History: Pseudo seizure, atrial tachycardia status post ablation, atrial flutter status post ablation, bicuspid aortic valve, WPW, thoracic aortic aneurysm Past Surgical History: No recent surgery history of surgery for WPW and 2 cardiac ablation Social History: Denies daily use of drugs alcohol tobacco products. Did have a glass of wine this evening. Family History: Noncontributory, ROS REVIEW OF SYSTEMS: A comprehensive 10 point review of systems is otherwise negative aside from elements mentioned in the history of present illness. Exam Constitutional appears well nontoxic triage nursing summary reviewed, vital signs reviewed, awake/alert. Eyes normal conjunctivae and sclera, EOMI, PERRLA. HENT normal inspection, atraumatic, moist mucus membranes, no epistaxis, neck supple/ no meningismus, no raccoon eyes. Respiratory clear to auscultation bilaterally, normal breath sounds, no respiratory distress, no wheezing. Cardiovascular rate normal, regular rhythm, no murmur, no edema, distal pulses normal. Gastrointestinal soft, non-tender, no rebound, no guarding, normal bowel sounds, no distension, no pulsatile mass. Genitourinary no CVA tenderness. Musculoskeletal no midline vertebral tenderness, full range of motion, no calf swelling, no tenderness of extremities, no meningismus, good pulses, neurovascularly intact. Skin pink, warm, & dry, no rash, skin atraumatic. Neurologic awake, alert and oriented x 3, AAOx3, moves all 4 extremities equally, motor intact, sensory intact, CN II-XII intact, normal cerebellar, normal vision, normal speech. Psychiatric normal mood/affect. Heme/Lymph/Immune no lymphadenopathy. Differential Diagnosis: Includes but is not limited to in a particular order: Cardiac arrhythmia, WPW, atrial flutter, AFib, other cardiac arrhythmia, anxiety , dehydration, electrolyte disturbance, acute coronary syndrome Medical Decision Making: Plan for this patient full assistant project engineer, IV establishment, obtain EKG, rule out ACS, rule out cardiac arrhythmia check electrolytes, magnesium, potassium, and re-evaluate. Re-evaluation: 2355: I did going Greet this patient is resting comfortably no acute distress. He denies any chest pain or shortness of breath. He is on a assistant project engineer with normal vital signs. He has declined chest x-ray. ED EKG: Time of EK: Sinus tachycardia rate of 102 T-wave abnormality seen in lead 3 and AVF QT interval 380. I do not appreciate acute ischemia. There is no ST elevation. No significant ST depression. When I compare this to his old EKG dated 01/19/2017 unchanged morphology. 0217: Patient is resting comfortably here in the emergency room in no acute distress. I did re-evaluate he has not any chest pain or shortness of breath. He has been on the cardiac premium service representative for over 3 hr and there has been no signs of cardiac arrhythmia. Currently his blood pressure is 118/81 heart rate 93. Pulse ox 96% on room air. His EKG is nonischemic. There has been any evidence of cardiac arrhythmia here in the emergency room. He did decline a chest x-ray. His blood work is reassuring with a negative troponin. Electrolytes are appropriate. I did speak with Dr. Butler about this patient's workup and presentation. He feels comfortable him going home. He should follow up with Dr. Jansen or Dr. Bui outpatient. Additionally she return emergency room if there is any worsening symptoms including if he feels signs of palpitations or develops chest pain or shortness of breath. He understands. Strict return precautions given. 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 - Social History Smoking Status: Never smoked Constitutional: Initial Vital Signs Temperature (C) 36.4 C 04/28/17 23:29 Heart Rate 105 H 04/28/17 23:29 Respiratory Rate 14 04/28/17 23:29 Blood Pressure 152/81 H 04/28/17 23:29 O2 Sat (%) 100 04/28/17 23:29 O2 Delivery Mode Room Air Allergies/Adverse Reactions: butalbital [From Fiorinal] Allergy (Unknown, Verified 06/13/12 09:24) Other-Enter Comments caffeine [From Fiorinal] Allergy (Verified 07/13/10 14:20) Other-Enter Comments oxycodone HCl [From Percocet] Allergy (Verified 07/13/10 14:20) Other-Enter Comments rizatriptan benzoate [From Maxalt] Allergy (Verified 07/13/10 14:20) Other-Enter Comments tramadol [Tramadol] Allergy (Verified 07/13/10 14:20) Other-Enter Comments Home Medications: Medication Instructions Recorded clonazePAM [Klonopin (*)] 0.5 mg PO DAILY PRN 12/24/16 lamoTRIgine [LamICTAL 100 MG (*)] 200 mg PO HS 12/24/16 Aspirin [Aspirin 81mg (*)] 81 mg PO DAILY #0 tab.chew 12/25/16 Nebivolol HCl [Bystolic 5 mg (*)] 5 mg PO DAILY #90 tab 12/25/16 Medical Decision Making - Data Points Laboratory Results: Laboratory Results 04/28/17 23:59 04/28/17 23:59 04/28/17 04/28/17 04/28/17 23:59 23:59 23:59 WBC 4.84 10^3/uL 10^3/uL (3.80-9.50) RBC 5.32 10^6/uL 10^6/uL (4.40-6.38) Hgb 16.4 g/dL g/dL (13.7-17.5) Hct 45.7 % % (40.0-51.0) MCV 85.9 fL fL (81.5-99.8) MCH 30.8 pg pg (27.9-34.1) MCHC 35.9 g/dL g/dL (32.4-36.7) RDW 12.2 % % (11.5-15.2) Plt Count 172 10^3/uL 10^3/uL (150-400) MPV 8.9 fL fL (8.7-11.7) Neut % (Auto) 45.2 % % (39.3-74.2) Lymph % (Auto) 43.4 % % (15.0-45.0) [place] % (Auto) 8.9 % % (4.5-13.0) Eos % (Auto) 1.7 % % (0.6-7.6) Baso % (Auto) 0.6 % % (0.3-1.7) Nucleat RBC Rel Count 0.0 % % (0.0-0.2) Absolute Neuts (auto) 2.19 10^3/uL 10^3/uL (1.70-6.50) Absolute Lymphs (auto) 2.10 10^3/uL 10^3/uL (1.00-3.00) Absolute Monos (auto) 0.43 10^3/uL 10^3/uL (0.30-0.80) Absolute Eos (auto) 0.08 10^3/uL 10^3/uL (0.03-0.40) Absolute Basos (auto) 0.03 10^3/uL 10^3/uL (0.02-0.10) Absolute Nucleated RBC 0.00 10^3/uL 10^3/uL (0-0.01) Immature Gran % 0.2 % % (0.0-1.1) Immature Gran # 0.01 10^3/uL 10^3/uL (0.00-0.10) PT 12.6 SEC SEC (12.0-15.0) INR 0.92 (0.83-1.16) APTT 28.2 SEC SEC (23.0-38.0) Sodium 143 mEq/L mEq/L (134-144) Potassium 3.5 mEq/L mEq/L (3.5-5.2) Chloride 105 mEq/L mEq/L (97-110) Carbon Dioxide 26 mEq/l mEq/l (22-31) Anion Gap 12 mEq/L mEq/L (8-16) BUN 20 mg/dL mg/dL (7-23) Creatinine 1.4 mg/dL H mg/dL (0.7-1.3) Estimated GFR 54 Glucose 94 mg/dL mg/dL (70-100) Calcium 9.3 mg/dL mg/dL (8.5-10.4) Magnesium 2.0 mg/dL mg/dL (1.6-2.3) Total Bilirubin 0.7 mg/dL mg/dL (0.1-1.4) Conjugated Bilirubin 0.3 mg/dL mg/dL (0.0-0.5) Unconjugated Bilirubin 0.4 mg/dL mg/dL (0.0-1.1) AST 31 IU/L IU/L (17-59) ALT 42 IU/L IU/L (21-72) Alkaline Phosphatase 55 IU/L IU/L (38-126) Creatine Kinase 142 IU/L IU/L (0-224) CK-MB (CK-2) Fraction 1.45 ng/mL ng/mL (0.00-3.19) Troponin I < 0.012 ng/mL ng/mL (0.000-0.034) NT-Pro-B Natriuret Pep 73 pg/mL pg/mL (0-125) Total Protein 7.3 g/dL g/dL (6.3-8.2) Albumin 4.1 g/dL g/dL (3.5-5.0) Lipase 133 IU/L IU/L (23-300) Medications Given: Discontinued Medications Sodium Chloride (Ns) 1,000 mls @ 0 mls/hr IV EDNOW ONE; Wide Open PRN Reason: Protocol Stop: 04/28/17 23:38 Last Admin: 04/29/17 00:07 Dose: 1,000 mls Departure - Departure Disposition: Home, Routine, Self-Care Clinical Impression: Palpitations Condition: Good Instructions: Palpitations (ED) Additional Instructions: 1. Return emergency room if you have worsening symptoms questions or concerns. 2. Please follow up with Cardiology Dr. Jansen. Please call their for an appointment this week. 3. Return if any worsening symptoms questions or concerns includes chest pain shortness of breath or you feel palpitations again. Referrals: Mayo King MD [Primary Care Provider] - As per Instructions Robert Jansen MD [Medical Doctor] - As per Instructions
[2017-04-28 23:32] VITALS: RESP 14; TEMP 97.5
--- NOTE | 2017-04-28 23:36 | CPEKG ---
Heart Rate: 102 RR Interval: 588 P-R Interval: 168 QRSD Interval: 104 QT Interval: 380 QTC Interval: 496 P [place]: 44 QRS [place]: 79 T Wave [place]: -14 EKG Severity - ABNORMAL ECG - EKG Impression: SINUS TACHYCARDIA EKG Impression: PROBABLE LEFT ATRIAL ABNORMALITY EKG Impression: INFERIOR INFARCT, AGE INDETERMINATE EKG Impression: BORDERLINE PROLONGED QT INTERVAL Electronically Signed By: Elijah Gillis 29-Apr-2017 06:37:48
[2017-04-28] MEDS ORDERED: NS 1,000 ML IV ONE (23:37)
[2017-04-29 00:15] LABS: % IMMATURE GRANULYOCYTES 0.2 % (0.0-1.1); ABSOLUTE IMMATURE GRANULOCYTES 0.01 10^3/uL (0.00-0.10); ADD DIFF? NO; ADD MORPH? NO; ADD SCAN? NO; ATYPICAL LYMPHOCYTE FLAG 10 (0-99); FRAGMENT RBC FLAG 0 (0-99); HEMATOCRIT 45.7 % (40.0-51.0); HEMOGLOBIN 16.4 g/dL (13.7-17.5); LEFT SHIFT FLG 0 (0-99); LIPEMIA HEMOLYSIS FLAG 90 (0-99); MEAN CELL HEMOGLOBIN 30.8 pg (27.9-34.1); MEAN CELL HEMOGLOBIN CONCENTR. 35.9 g/dL (32.4-36.7); MEAN CELL VOLUME 85.9 fL (81.5-99.8); MEAN PLATELET VOLUME 8.9 fL (8.7-11.7); PLATELET CLUMPS FLAG 10 (0-99); PLATELET COUNT 172 10^3/uL (150-400); RED BLOOD CELL COUNT 5.32 10^6/uL (4.40-6.38); RED CELL DISTRIBUTION WIDTH 12.2 % (11.5-15.2)
[2017-04-29 00:26] LABS: APTT 28.2 SEC (23.0-38.0); INR 0.92 (0.83-1.16); PROTIME(PATIENT) 12.6 SEC (12.0-15.0)
[2017-04-29 00:38] LABS: ALANINE AMINOTRANSFERASE 42 IU/L (21-72); ALBUMIN 4.1 g/dL (3.5-5.0); ALKALINE PHOSPHATASE 55 IU/L (38-126); ANION GAP 12 mEq/L (8-16); ASPARTATE AMINOTRANSFERASE 31 IU/L (17-59); BILIRUBIN,TOTAL 0.7 mg/dL (0.1-1.4); BILIRUBIN-CONJUGATED 0.3 mg/dL (0.0-0.5); BILIRUBIN-UNCONJUGATED 0.4 mg/dL (0.0-1.1); CALCIUM 9.3 mg/dL (8.5-10.4); CARBON DIOXIDE 26 mEq/l (22-31); CHLORIDE 105 mEq/L (97-110); CREATININE 1.4 mg/dL (0.7-1.3); GLOMERULAR FILTRATION RATE 54; GLUCOSE 94 mg/dL (70-100); POTASSIUM 3.5 mEq/L (3.5-5.2); SODIUM 143 mEq/L (134-144); TOTAL PROTEIN 7.3 g/dL (6.3-8.2)
[2017-04-29 00:51] LABS: CREATINE KINASE-MB FRACTION 1.45 ng/mL (0.00-3.19); TROPONIN I < 0.012 ng/mL (0.000-0.034)
[2017-04-29 02:02] VITALS: BP 125/77; PULSE 95; O2SAT 96
== END 2017-04-29 02:33 | disposition home or self-care (01) ==
DX: R00.2 Palpitations (principal); E86.9 Volume depletion, unspecified